=== PATIENT | male | born 1955 | race Caucasian/White ===

== ENCOUNTER 2018-12-15 05:00 | Inpatient (IN) ==
[2018-12-07 19:02] LABS: Basophils # (Auto) 0 K/mcL (0.0-0.3); Basophils % (Auto) 0.6 % (0.0-2.0); Eosinophils # (Auto) 0.1 K/mcL (0.0-0.7); Eosinophils % (Auto) 1.9 % (0.0-7.0); Granulocytes % (Auto) 66.8 % (38.0-78.0); Hematocrit 37.7 % (41.0-55.0); Hemoglobin 13.2 g/dL (13.5-16.5); Lymphocytes # (Auto) 1.6 K/mcL (1.5-4.8); Lymphocytes % (Auto) 25.3 % (15.5-49.0); Mean Cell Volume 95.6 fL (80.0-100.0); Mean Platelet Volume 7.3 fL (7.4-10.4); Monocytes # (Auto) 0.3 K/mcL (0.1-0.9); Monocytes % (Auto) 5.4 % (1.0-12.0); Platelet Count 160 K/mcL (140-440); RBC 3.95 M/mcL (4.50-5.90); Red Cell Distribution Width 15.1 % (11.5-14.5); WBC 6.2 K/mcL (4.5-11.0)
[2018-12-07 19:06] LABS: Blood Urea Nitrogen 11 mg/dl (8-23); Calcium 8.9 mg/dl (8.6-10.4); Carbon Dioxide 25 mmol/L (22-30); Chloride 98 mmol/L (96-108); Glomerular Filtration Rate 100; Glucose 92 mg/dL (70-105)
[2018-12-07 19:43] LABS: INR 1.1 (0.9-1.1); Prothrombin Time 13.9 sec (11.9-14.5)
[2018-12-07 20:47] LABS: Appearance,Urine CLEAR; Bilirubin,Urine NEG (NEG); Color,Urine YELLOW; Culture Indicated,Urine NO; Glucose,Urine (UA) NEGATIVE (NEG); Ketones,Urine NEG (NEG); Leukocyte Esterase,Urine NEG /uL (NEG); Nitrate,Urine NEG (NEG); Protein,Urine NEG (NEG); Specific Gravity,Urine 1.027 (1.000-1.035); Urine Blood NEG mg/dL (<0.03); Urobilinogen,Urine NEG (NEG)
[~2018-12-15 05:00] MED LIST: IPRATROPIUM/ALBUTEROL 3 ML AMPUL.NEB NEB PRN; SCOPOLAMINE 1 PATCH PATCH TOPICAL PRN
[2018-12-15] MEDS ORDERED: oxyCODONE 10 MG TAB.ER.12H PO SCH (06:00)
[2018-12-15] MEDS ORDERED: PREGABALIN 75 MG CAPSULE PO SCH (06:00)
[2018-12-15] MEDS ORDERED: 0.9 % SODIUM CHLORIDE 9 ML, KETOROLAC 30 MG, ROPIVACAINE HCL/PF 49.5 ML, EPINEPHrine 0.... IJ SCH (06:00)
[2018-12-15] MEDS ORDERED: CELECOXIB 200 MG CAPSULE PO SCH (06:00)
[2018-12-15] MEDS ORDERED: ceFAZolin 2 GM in DEXTROSE 5% IN WATER 50 ML IV SCH (06:00)
[2018-12-15] MEDS ORDERED: KETAMINE 10 MG/ML ML ONE (07:25)
[2018-12-15] MEDS ORDERED: MIDAZOLAM 2 MG/2 ML VIAL ONE (07:25)
[2018-12-15] MEDS ORDERED: GLYCOPYRROLATE 0.2 MG/ML VIAL IV ONE (07:25)
[2018-12-15] MEDS ORDERED: PROPOFOL 200 MG/20 ML VIAL IV ONE (07:25)
[2018-12-15] MEDS ORDERED: LIDOCAINE HCL/PF 100 MG/5 ML SYRINGE IV ONE (07:25)
[2018-12-15] MEDS ORDERED: DEXAMETHASONE 10 MG/ML VIAL ONE (07:25)
[2018-12-15] MEDS ORDERED: ONDANSETRON 4 MG/2 ML VIAL ONE (07:25)
[2018-12-15] MEDS ORDERED: PHENYLEPHRINE 10 MG/ML VIAL ONE (07:25)
[2018-12-15] MEDS ORDERED: IPRATROPIUM/ALBUTEROL 3 ML AMPUL.NEB NEB PRN (08:07)
[2018-12-15] MEDS ORDERED: BENZOCAINE/MENTHOL 1 LOZENGE PO PRN ×2 (08:07→08:55)
[2018-12-15] MEDS ORDERED: METHOCARBAMOL 1,000 MG/10 ML VIAL IV PRN (08:07)
[2018-12-15] MEDS ORDERED: KETOROLAC 30 MG/ML VIAL IV PRN (08:07)
[2018-12-15] MEDS ORDERED: MEPERIDINE 25 MG/ML SYRINGE IV PRN (08:07)
[2018-12-15] MEDS ORDERED: ACETAMINOPHEN 1,000 MG/100 ML BOTTLE IV ONE (08:07)
[2018-12-15] MEDS ORDERED: NALOXONE HCL 0.4 MG/ML VIAL IV PRN (08:07)
[2018-12-15] MEDS ORDERED: fentaNYL 100 MCG/2 ML VIAL IV PRN (08:07)
[2018-12-15] MEDS ORDERED: FLUMAZENIL 0.1 MG/ML ML IV PRN (08:07)
[2018-12-15] MEDS ORDERED: LACTATED RINGERS 250 ML IV PRN (08:07)
[2018-12-15] MEDS ORDERED: ONDANSETRON 4 MG/2 ML VIAL IV PRN ×2 (08:07→08:55)
[2018-12-15] MEDS ORDERED: GENTAMICIN SULFATE 800 MG/20 ML VIAL IR ONE (08:11)
[2018-12-15] MEDS ORDERED: LACTATED RINGERS 1,000 ML IV SCH (08:15)
--- NOTE | 2018-12-15 08:54 | Brief Operative Note ---
Date of procedure: 12/15/18 Pre-op diagnosis: right knee osteoarthritis Post-op diagnosis: same Procedure: right total knee arthroplasty Grafts/Implants: Yes Anesthesia: spinal Complications: none Surgeon: Kishore Frias Farebox Repairer: Zulma Head Estimated blood loss (cc): 150 Tourniquet Time (Minutes): 56 Specimens Removed/Pathology: none sent Condition: stable Disposition: PACU
[2018-12-15] MEDS ORDERED: TRANEXAMIC ACID 1,000 MG/10 ML VIAL IV SCH (08:55)
[2018-12-15] MEDS ORDERED: BISACODYL 10 MG SUPP.RECT PR PRN (08:55)
[2018-12-15] MEDS ORDERED: FLEETS ADULT ENEMA PR PRN (08:55)
[2018-12-15] MEDS ORDERED: MAGNESIUM HYDROXIDE 30 ML ORAL.SUSP PO PRN (08:55)
[2018-12-15] MEDS ORDERED: ONDANSETRON 4 MG ODT TABLET SL PRN (08:55)
[2018-12-15] MEDS ORDERED: POLYETHYLENE GLYCOL 3350 17 GM PACKET PO PRN (08:55)
--- NOTE | 2018-12-15 09:58 | XRay Report ---
CLINICAL INFORMATION: Post-Op Total Knee COMPARISON: None. FINDINGS: Total knee prostheses is anatomically aligned. No osseous abnormality. Para-articular gas and soft tissue swelling seen. IMPRESSION: Negative Interpreted and Authenticated by: Kishore Monae 12/15/18
[2018-12-15] MEDS: DOCUSATE SODIUM 100 MG CAPSULE PO SCH ×2 (10:00→20:33)
[2018-12-15] MEDS: ASPIRIN 81 MG TAB.CHEW PO SCH ×2 (10:00→20:33)
--- NOTE | 2018-12-15 10:31 | Operative Note ---
DATE OF OPERATION: 12/15/2018 PREOPERATIVE DIAGNOSIS: Degenerative joint disease, right knee. POSTOPERATIVE DIAGNOSIS: Degenerative joint disease, right knee. PROCEDURE: Right total knee arthroplasty. SURGEON: Tank Frias M.D. TUNNEL MAN SURGEON: Zulma Head PA-C. This provider's expertise and technical skill were required throughout the case. The PA assisted with preoperative coordination, intraoperative retraction, wound closure, dressing and splint application, as well as postoperative documentation and care coordination. ANESTHESIA: Spinal with LMA assist. ESTIMATED BLOOD LOSS: 150 mL COMPLICATIONS: None noted. SPECIMENS REMOVED: None. DRAINS: None. TOURNIQUET TIME: 56 minutes at 250 mmHg. IMPLANTS: DePuy Attune CMW2 bone cement 20 trams x5, DePuy Attune femoral posterior stabilized size 8 right cemented, DePuy Attune tibial insert fixed bearing posterior stabilized size 8, 5 mm AOX, DePuy Attune tibial based fixed bearing size 8 cemented, DePuy Attune patella medialized dome 41 mm cemented AOX. INDICATIONS: The patient has had a long-standing history of worsening pain in the knee that has failed conservative treatment. Radiographs have confirmed advanced degenerative joint disease. After a long discussion about treatment options, the patient elected to proceed with a knee arthroplasty. The risks and benefits were discussed with the patient in detail including, but not limited to, the risks of anesthesia, problems with the heart or lungs related to anesthesia, infection, compromise or injury to the nerves and blood vessels, deep venous thrombosis, pulmonary embolism, pneumonia, continued pain after surgery, worsening pain or symptoms after surgery, swelling, loss of motion, instability, leg length discrepancy, and need for repeat surgery. DESCRIPTION OF PROCEDURE: The patient was seen in the pre-anesthesia waiting room where all questions were answered and the correct side and site were identified and marked. The patient was transferred to the operating room and administered the anesthetic and given pre-operative antibiotics. A time-out was then called. The extremity was prepped and draped, exsanguinated, and the tourniquet was inflated to 300 mmHg. A midline skin incision was then made with a standard medial parapatellar arthrotomy. Debridement of the menisci, ACL, and PCL was performed followed by balancing releases in the medial lateral plane. We then established intramedullary access to both the femur and tibia in a standard fashion. The femoral guide kathleen was initially placed with the distal femoral guide, pinned into place, and the distal femoral cut was performed and checked with a flat plate. We then turned our attention to the tibia. The intramedullary guide was placed with the proximal tibial cutting block. The block was appropriately positioned off the affected side, varus and valgus was checked with the extra-medullary guide, and the block was pinned into place. The proximal tibial cut was performed and the tibia was prepared for the tibial implant with appropriate rotation. The tibia, femur, and posterior compartment were debrided of osteophytes, loose bodies, and meniscal fragments We then used the gap balancing technique to balance extension with the first two cuts and good balancing was obtained with a 10 millimeter gap block. We turned our attention back to the femur and used the referencing block and implant to size appropriately. Using the gap balancing technique for the flexion space we set our rotation of the femur off the tibial cut. Anesthesia gave the patient 1 gram of Tranexamic Acid via an intravenous route. We placed the 4 in 1 cutting block and made anterior, posterior, and chamfer cuts. Box plasty cuts were then made in a standard fashion for the posterior stabilized prosthesis. We then completed osteophyte release and posterior capsule release from the posterior compartment. Trials were placed and we chose the polyethylene insert thickness that provided the best stability in all planes. With the trials in place, we did a measured resection for a resurfacing patella. We sized the patella and placed the patella trial and performed a lateral facetectomy with the saw and rongeur. Good tracking was obtained. We removed all trials, irrigated and dried all cut surfaces. We cemented the components into place including tibia, femur and patella. We placed a trial liner and held the knee in full extension with the patella compressed while the cement cured. We then removed all excess cement and placed the final polyethylene tibiofemoral component. Irrigation with 3 liters of antibiotic saline was then performed using jet-lavage. We let the tourniquet down and coagulated bleeding vessels. We injected a 100 cubic centimeter volume including Ropivacaine 49.25 cubic centimeters at 5 milligrams per cubic centimeter, Ketorolac 30 milligrams, and Epinephrine 0.5 milligrams into 100 cubic centimeters volume of normal saline. We closed the retinaculum with #2 Stratafix and 0 Vicryl. We closed the subcutaneous tissue and skin in layers out to Dermabond on the skin. A sterile pressure dressing was applied. All needle and sponge counts were correct. The patient was transferred to the recovery room in stable condition. GIOVANNI:troy Job ID: [id number] Doc ID: [id number] Tank Frias MD
[2018-12-15] MEDS: 0.9 % SODIUM CHLORIDE 1,000 ML IV SCH ×3 (10:45→19:00)
[2018-12-15] MEDS: 0.9 % SODIUM CHLORIDE 10 ML SYRINGE IV SCH ×2 (14:03→20:34)
[2018-12-15] MEDS: ceFAZolin 1 GM VIAL IV SCH ×2 (16:28→23:08)
[2018-12-15] MEDS: KETOROLAC 30 MG/ML VIAL IV SCH ×3 (16:28→23:08)
[2018-12-15] MEDS: METHOCARBAMOL 750 MG TABLET PO PRN (20:38)
[2018-12-15] MEDS: HYDROcodone/APAP 10/325MG TABLET PO PRN (20:38)
[2018-12-15] MEDS ORDERED: SENNOSIDES 1 TABLET PO SCH (21:00)
[2018-12-16] MEDS: 0.9 % SODIUM CHLORIDE 1,000 ML IV SCH ×2 (02:44→10:59)
[2018-12-16] MEDS: METHOCARBAMOL 750 MG TABLET PO PRN (02:45)
[2018-12-16] MEDS: HYDROcodone/APAP 10/325MG TABLET PO PRN ×2 (02:45→10:18)
[2018-12-16] MEDS: KETOROLAC 30 MG/ML VIAL IV SCH ×2 (05:10→11:46)
[2018-12-16] MEDS: 0.9 % SODIUM CHLORIDE 10 ML SYRINGE IV SCH (05:10)
[2018-12-16 06:48] LABS: Hematocrit 26.3 % (41.0-55.0); Hemoglobin 9.3 g/dL (13.5-16.5)
--- NOTE | 2018-12-16 07:52 | Orthopedic Progress Note ---
Subjective Patient information: Note initiated : 12/16/18 at 7:51 am Service Date, if different from initiated Date: [] Patient: Mick Velarde 63 y/o M admitted on 12/15/18 for Right Total Knee Arthroplasty. Chief Complaint: [] Interval history: doing well. no complaints Objective Vital signs: Vital Signs Temp Pulse Resp BP Pulse Ox 12/16/18 07:49 97.8 F 77 16 131/70 97 12/16/18 02:57 98.1 F 91 H 16 122/69 99 12/15/18 23:09 98.3 F 93 H 16 124/73 98 12/15/18 19:07 98.3 F 98 H 16 129/76 98 12/15/18 17:00 76 12/15/18 13:00 76 12/15/18 12:38 97 H 119/74 98 12/15/18 11:44 86 114/70 96 12/15/18 11:14 80 110/70 95 12/15/18 10:44 54 L 99/60 94 12/15/18 10:29 62 102/67 95 12/15/18 10:14 64 108/72 96 12/15/18 09:59 77 106/68 94 12/15/18 09:44 75 107/64 93 12/15/18 09:41 98.3 F 76 12 118/71 97 12/15/18 09:25 77 12 116/66 96 12/15/18 09:20 76 14 112/66 100 12/15/18 09:15 75 15 110/61 100 12/15/18 09:10 98.1 F 74 14 112/61 100 Intake and Output 12/15/18 12/16/18 12/16/18 21:59 05:59 13:59 Intake Total 1240 1417 Output Total 1600 750 Balance -360 667 Intake: IV 1000 967 Sodium Chloride 0.9% 1,000 ml @ 1000 967 125 mls/hr IV [facility] Rx#: [id number] Oral 240 450 Output: Urine Catheter Amount 1100 250 Void Amount 500 500 Other: Meal Dinner Percent of Meal Consumed 100% Feeding Ability Independent Urine Appearance Clear Clear Urine Color Straw Bright Yellow Urine Odor Normal Strong # Voids 1 Weight 206 lb Intake & Output: Intake & Output 12/15/18 12/16/18 12/16/18 21:59 05:59 13:59 Intake Total 1240 1417 Output Total 1600 750 Balance -360 667 Weight 206 lb Intake: IV 1000 967 Sodium Chloride 0.9% 1,000 ml @ 1000 967 125 mls/hr IV .Q8H [facility] Rx#: [id number] Oral 240 450 Output: Urine Catheter Amount 1100 250 Void Amount 500 500 Other: Meal Dinner Percent of Meal Consumed 100% Feeding Ability Independent Urine Appearance Clear Clear Urine Color Straw Bright Yellow Urine Odor Normal Strong # Voids 1 Incision: Yes healing Incision clean and dry: Yes Dressing: Yes clean, Yes dry, Yes intact Weight bearing status: non Neurological exam IM: Yes alert, Yes normal gait, Yes oriented X3, Yes motor sensory intact, Yes neurovascular intact Extremities exam IM: No calf tenderness, Yes neurovascular intact - Labs CBC & BMP: 12/16/18 04:32 12/07/18 14:47 Labs: Orthopedic Labs 12/07/18 14:47 PT 13.9 INR 1.1 12/16/18 12/07/18 04:32 14:47 Hgb 9.3 L 13.2 L Hct 26.3 L 37.7 L Assessment and Plan (1) Knee osteoarthritis pod 1 s/p tka wbat pain control dvt prophylaxis d/c planning - home Status: Acute
--- NOTE | 2018-12-16 07:53 | Discharge Summary ---
Ortho Discharge - TKA - Patient Instructions Diet: Regular Diet Activity: activity as tolerated, ambulate with assistive device, weight bearing as tolerated Total Knee Protocol: For Total Knee: Start ROM BETH with stationary bike or rocking chair. Work on gaining full extension of knee. Posterior dislocation precautions provided. Hip abductor strengthening and gait training instructions provided. Apply Cryocuff as instructed. Dressing Care: May shower in 2 days - Problem Maintenance (1) Knee osteoarthritis Status: Acute - Follow Up Plan Follow Up Appointments: Bolivar Dale PA-C [Physician Cdl Team Truck Driver] - 12/30/18 9:40 am Disposition: Home, Self-Care Prognosis: Good Rehab Potential: Good I certify that the patient requires SNF services: No Overall status at discharge: patient is progressing back to baseline
[2018-12-16] MEDS: DOCUSATE SODIUM 100 MG CAPSULE PO SCH (08:49)
[2018-12-16] MEDS: ASPIRIN 81 MG TAB.CHEW PO SCH (08:49)
== END 2018-12-16 13:00 | disposition home or self-care (01) | DRG 470 ==
LOC: MEDSUR 05:00
PROVIDERS: ADMIT Orthopaedic Surgery Sports Medicine; ATTEND Orthopaedic Surgery Sports Medicine